=== PATIENT | female | born 1980 | race Caucasian/White ===

== ENCOUNTER 2021-06-03 12:25 | Outpatient (REF) | payer OTHER, SELFPAY ==
[2021-06-03 14:31] LABS: Binax Now Covid-19 Ag Negative (Negative)
[2021-06-03 14:32] LABS: Binax Internal Control QC Valid; Binax Lot number: 9864
== END 2021-06-03 12:26 | disposition home or self-care (01) ==
LOC: HO.LAB 12:25
PROVIDERS: Visit Provider Internal Medicine
DX: Z20.822 Contact with and (suspected) exposure to COVID-19 (principal)
CPT/HCPCS: C9803